=== PATIENT | male | born 1965 | race Two or more races ===

== ENCOUNTER 2025-04-06 13:55 | Emergency (ER) | payer BC ==
[~2025-04-06] VITALS: Ht 162.6 cm; Wt 65.8 kg
[2025-04-06 14:23] VITALS: BP 138/80; O2SAT 100
[2025-04-06] MEDS ORDERED: KETOROLAC TROMETHAMINE 60 MG VIAL IM STA (14:34)
== END 2025-04-06 16:35 | disposition home or self-care (01) ==
LOC: ER 13:55
DX: S92.912A Unspecified fracture of left toe(s), initial encounter for closed fracture (principal); W22.8XXA Striking against or struck by other objects, initial encounter; Y93.89 Activity, other specified; Y92.832 Beach as the place of occurrence of the external cause; G30.8 Other Alzheimer's disease; F02.80 Dementia in other diseases classified elsewhere, unspecified severity, without behavioral disturbance, psychotic disturbance, mood disturbance, and anxiety